=== PATIENT | female | born 1970 | race Caucasian/White ===

== ENCOUNTER → 2018-08-01 | Outpatient (CLI) | payer SELFPAY ==
[~2018-08-01] MED LIST: LIDOCAINE 1% INJ 20 ML 20 ML VIAL INJ ONE; LIDOCAINE 1% INJ 20 ML 20 ML VIAL ONE
--- NOTE | 2018-08-01 13:19 | Diagnostic Imaging Report ---
PROCEDURE: MRI left joint upper extremity with contrast TECHNIQUE: Multiplanar, multisequence MR imaging of the left shoulder was performed with intra-articular contrast. COMPARISON: None available. INDICATION: Left shoulder pain. Prior superior labral tear repair. FINDINGS: Rotator cuff: No high-grade partial or full thickness rotator cuff tear. No rotator cuff muscle atrophy or denervation edema. Glenoid labrum: Status post prior anterior and superior labral repair with soft tissue anchors in the glenoid. Truncation of the anterior labrum may relate to prior debridement. However, there is no recurrent superior labral tear appreciated. Anterior labrum remains intact. No para-labral cyst. Long head of biceps: Long head of biceps is normally positioned within the bicipital groove. The intracapsular segment is intact. Bones and cartilage: Humeral head is normal in morphology without fracture or focal osseous lesion. No glenohumeral chondromalacia. The acromioclavicular joint is normal in alignment without significant degenerative change. Soft tissues: No proliferative synovitis or loose bodies in the glenohumeral joint. No MRI findings to suggest adhesive capsulitis. No fluid or inflammatory like signal within the subacromial/subdeltoid space to indicate bursitis. IMPRESSION: 1. Prior superior labral repair is intact and there is no recurrent labral tear. Truncation of the anterior labrum may relate to prior partial debridement or degenerative fraying. 2. No rotator cuff tear. 3. Long head of biceps remains intact. Dictated by: Dictated on workstation # [id number]
--- NOTE | 2018-08-01 14:37 | Diagnostic Imaging Report ---
INDICATION: Left shoulder pain. TECHNIQUE: The patient was brought to the fluoroscopy suite and placed on the table in the supine position. The skin of the left shoulder was prepped and draped in the usual sterile fashion. A small amount of 1% lidocaine was utilized for local anesthesia. A 21-gauge needle was advanced into the left shoulder at the rotator interval. A 15 mm solution of iodinated contrast, normal saline, and gadolinium was injected under fluoroscopic observation. The needle was withdrawn and hemostasis was obtained. The patient tolerated the procedure well and was sent to MRI in satisfactory condition. 35 seconds of fluoroscopy was utilized. IMPRESSION: Successful left shoulder injection of a gadolinium contrast solution using fluoroscopy. Dictated by: Dictated on workstation # [id number]
== END ==
LOC: RAD 10:13
PROVIDERS: ATTEND Nurse Practitioner
DX: S43.432D Superior glenoid labrum lesion of left shoulder, subsequent encounter (principal)
CPT/HCPCS: 23350; 73040; 73222